=== PATIENT | female | born 1975 | race Caucasian/White ===

== ENCOUNTER 2017-03-08 16:19 | Observation (INO) | payer BC ==
[2017-03-08] MEDS ORDERED: Lactated Ringers 1,000 ML IV SCH (17:00)
[2017-03-08 17:17] LABS: BASOPHIL % 0.2 % (0.0-0.4); Eosinophil % 1.4 % (0.00-5.0); Granulocytes % 65.5 % (36.0-66.0); Lymphocytes % 25.1 % (24.0-44.0); Mean Cell Volume 85.2 fl (78-100); Mean Corpuscular Hemoglobin 26.8 pg (26-32); Mean Platelet Volume 9.7 fl (6-9.5); Monocytes % 7.8 % (0.0-12.0); Platelet Count 622 K/mm3 (150-450); Red Blood Count 4.73 M/mm3 (4.1-5.4); Red Cell Distribution Width 15.7 % (11.5-14.0)
[2017-03-08 17:37] LABS: ALBUMIN 3.2 g/dL (3.4-5.0); ALKALINE PHOSPHATASE 68 U/L (46-116); ANION GAP 10.3 MEQ/L (5-15); BILIRUBIN,TOTAL 0.3 mg/dL (0.2-1.0); BLOOD UREA NITROGEN 10 mg/dL (9-20); CHLORIDE 106 mEq/L (98-107); Carbon Dioxide 29.2 mEq/L (21-32); Glucose 100 MG/DL (70-110); Potassium 3.9 mEq/L (3.5-5.1); SGOT/AST 32 U/L (15-37); SGPT/ALT 32 U/L (12-78); SODIUM 142 mEq/L (136-145); Total Protein 6.2 gm/dL (6.4-8.2)
[2017-03-08] MEDS: Lactated Ringers 1,000 ML IV SCH (18:07)
--- NOTE | 2017-03-08 19:43 | PCM.HP ---
History of Present Illness - Chief Complaint Chief Complaint: dehydration/viral syndrome History of Present Illness: is a 41 year old female. - Review of Systems Constitutional: Fever, Weight Loss (from weight wat[employer], 22 lb since Nov) Ears, Nose, & Throat: Throat Pain Respiratory: Cough, Short Of Breath Cardiac: Chest Pain (burning; resolved) Abdominal/Gastrointestinal: Diarrhea Musculoskeletal: Fall (syncope last night) Neurological: Headache, Other (syncope) Psychological: No Anxiety, No Depression, No Suicidal Ideations All Other Systems: Reviewed and Negative Medications & Allergies Home Medications: Home Medication List Venlafaxine HCl ER 75 mg [Effexor XR 75 MG] 75 mg PO HS 03/08/17 [History Confirmed 03/08/17] Allergies/Adverse Reactions: Allergies Allergy/AdvReac Type Severity Reaction Status Date / Time No Known Drug Allergies Allergy Unverified 03/08/17 11:36 - Past Medical History Past Medical History: Yes Neurological History: No Pertinent History ENT History: No Pertinent History Cardiac History: No Pertinent History Respiratory History: No Pertinent History Endocrine Medical History: No Pertinent History Musculoskelatal History: No Pertinent History GI Medical History: No Pertinent History History: No Pertinent History Pyscho-Social History: Depression Reproductive Disorders: Menstrual Problems - Female History Are you now?: No - Past Surgical History Past Surgical History: Yes Neuro Surgical History: No Pertinent History Cardiac History: No Pertinent History Respiratory Surgery: No Pertinent History GI Surgical History: No Pertinent History Genitourinary Surgical Hx: No Pertinent History Musculskeletal Surgical Hx: Orthopedic Surgery Female Surgical History: Hysterectomy, Section - Social History Smoking Status: Never smoker Exposure to second hand smoke: No Alcohol: None Drug Use: none - Physical Exam Vital Signs: Vital Signs - 24 hr Temp Pulse Resp BP Pulse Ox 03/08/17 16:24 99.2 F 58 L 16 130/79 98 General Appearance: no apparent distress Neurologic Exam: alert, oriented x 3, cooperative Eye Exam: eyes nml inspection Ears, Nose, Throat Exam: TMs normal, pharynx normal, moist mucous membranes Neck Exam: normal inspection, non-tender, No lymphadenopathy Respiratory Exam: lungs clear, diminished breath sounds (more diminished RLL), other, No crackles/rales, No rhonchi, No wheezing Cardiovascular Exam: regular rate/rhythm, No murmur Gastrointestinal/Abdomen Exam: soft, normal bowel sounds, No tenderness, No distention, No guarding, No rebound Back Exam: normal inspection Extremity Exam: No pedal edema, No swelling Skin Exam: normal color, warm, dry Results - Labs Lab/Micro Results: Lab Results-Last 24 Hours 03/08/17 03/08/17 Range/Units 16:37 16:37 WBC 9.0 (4.0-10.5) K/mm3 RBC 4.73 (4.1-5.4) M/mm3 Hgb 12.7 (12.0-16.0) gm/dl Hct 40.3 (35-47) % MCV 85.2 (78-100) fl MCH 26.8 (26-32) pg MCHC 31.5 L (32-36) g/dl RDW 15.7 H (11.5-14.0) % Plt Count 622 H (150-450) K/mm3 MPV 9.7 H (6-9.5) fl Gran % 65.5 (36.0-66.0) % Lymphocytes % 25.1 (24.0-44.0) % Monocytes % 7.8 (0.0-12.0) % Eosinophils % 1.4 (0.00-5.0) % Basophils % 0.2 (0.0-0.4) % Basophils # 0.02 (0-0.4) Sodium 142 (136-145) mEq/L Potassium 3.9 (3.5-5.1) mEq/L Chloride 106 (98-107) mEq/L Carbon Dioxide 29.2 (21-32) mEq/L Anion Gap 10.3 (5-15) MEQ/L BUN 10 (9-20) mg/dL Creatinine 0.87 (0.55-1.30) mg/dl Estimated GFR > 60 ML/MIN Glucose 100 (70-110) MG/DL Calcium 8.3 L (8.5-10.1) mg/dL Total Bilirubin 0.3 (0.2-1.0) mg/dL AST 32 (15-37) U/L ALT 32 (12-78) U/L Alkaline Phosphatase 68 (46-116) U/L Serum Total Protein 6.2 L (6.4-8.2) gm/dL Albumin 3.2 L (3.4-5.0) g/dL - Radiology Impressions Radiology Exams & Impressions: Radiology Procedures Category Date Time Status CHEST 2 VIEWS (PA AND LAT) Urgent Exams 03/08/17 16:39 Taken Assessment/Plan (1) Atypical pneumonia Current Visit: Yes Status: Acute Assessment & Plan: Will treat with zithromax; she already had po zithromax today so will start the IV dose tomorrow. Code(s): J18.9 - PNEUMONIA, UNSPECIFIED ORGANISM (2) Fever Current Visit: Yes Status: Acute Qualifiers: Fever type: unspecified Qualified Code(s): R50.9 - Fever, unspecified Assessment & Plan: Having fever at home; 99.3 so far this evening. will go ahead with blood cultures. INfluenza, strep, mono have been negative per pt - would like these on the chart. Code(s): R50.9 - FEVER, UNSPECIFIED (3) Sinusitis Current Visit: Yes Status: Acute Qualifiers: Sinusitis location: frontal Chronicity: acute Assessment & Plan: treat with IV rocephin. Code(s): J32.9 - CHRONIC SINUSITIS, UNSPECIFIED (4) Syncope Current Visit: Yes Status: Acute Assessment & Plan: Last night. Telemetry. Could have been fluid depletion. check orthostats. Code(s): R55 - SYNCOPE AND COLLAPSE (5) Weakness Current Visit: Yes Status: Acute Assessment & Plan: repeat labs in a.m. Code(s): R53.1 - WEAKNESS (6) Diarrhea Current Visit: Yes Status: Acute Assessment & Plan: c. diff neg per pt report - would like this onthe chart. Code(s): R19.7 - DIARRHEA, UNSPECIFIED
[2017-03-08] MEDS ORDERED: ROCEPHIN 1 Gm-D5w 50 ml Bag** 1 G/50 ML IVPB IV SCH (19:45)
[2017-03-08 21:29] LABS: Collection Type CLEAN CATCH
[2017-03-08 21:30] LABS: COMPLETE URINE MICROSCOPIC? NO
[2017-03-08] MEDS ORDERED: Effexor XR 75 MG PO SCH (22:00)
[2017-03-08] MEDS: TYLENOL EXTRA STRENGTH 500 MG PO PRN (23:26)
[2017-03-09] MEDS: Lactated Ringers 1,000 ML IV SCH (03:03)
[2017-03-09 05:35] LABS: BASOPHIL % 0.4 % (0.0-0.4); Eosinophil % 2.4 % (0.00-5.0); Granulocytes % 50.8 % (36.0-66.0); Lymphocytes % 37.4 % (24.0-44.0); Mean Cell Volume 85.6 fl (78-100); Mean Corpuscular Hemoglobin 26.7 pg (26-32); Mean Platelet Volume 9.9 fl (6-9.5); Platelet Count 544 K/mm3 (150-450); Red Blood Count 4.38 M/mm3 (4.1-5.4); Red Cell Distribution Width 15.9 % (11.5-14.0)
[2017-03-09 05:58] LABS: ALBUMIN 2.7 g/dL (3.4-5.0); ALKALINE PHOSPHATASE 61 U/L (46-116); ANION GAP 10.6 MEQ/L (5-15); BILIRUBIN,TOTAL 0.3 mg/dL (0.2-1.0); BLOOD UREA NITROGEN 7 mg/dL (9-20); CHLORIDE 106 mEq/L (98-107); Carbon Dioxide 29.9 mEq/L (21-32); Glucose 88 MG/DL (70-110); Potassium 4.3 mEq/L (3.5-5.1); SGOT/AST 26 U/L (15-37); SGPT/ALT 28 U/L (12-78); SODIUM 142 mEq/L (136-145); Total Protein 5.5 gm/dL (6.4-8.2)
[2017-03-09] MEDS: TYLENOL EXTRA STRENGTH 500 MG PO PRN (08:07)
--- NOTE | 2017-03-09 08:32 | XRAY ---
Indication: Cough and intermittent fever for 2 weeks. Comparison: March 07, 2017. PA/lateral chest again demonstrates normal heart, lungs, and bony thorax. Comment: Preliminary interpretation was made by [facility]. No discrepancy.
[2017-03-09] MEDS ORDERED: Zithromax 500 MG/ 250 ML NaCl Premix 250 ML IV SCH (10:00)
[2017-03-09] MEDS ORDERED: TORAdol 30 mg Injection IV ONE (10:30)
[2017-03-09 11:42] VITALS: BP 122/77; PULSE 70; O2SAT 97
[2017-03-09] MEDS ORDERED: Lomotil PO PRN (12:47)
--- NOTE | 2017-03-09 13:15 | XRAY ---
Indication: Fever, nausea, and vomiting. Comparison: March 07 and March 08, 2017. PA/lateral chest continues to demonstrate normal heart, lungs, and bony thorax.
--- NOTE | 2017-03-09 13:24 | PCM.DS ---
Discharge Summary Date of Admission: 03/08/17 16:19 Admitting Physician: TURNER MENDEZ Primary Care Provider: FABRIZIO PRATT Allergies Allergies No Known Drug Allergies Allergy (Unverified 03/08/17 11:36) Hospital Summary - Hospital Course Hospital Course: Pt has been ill for almost 2 weeks, she went to and was negative for influenza and strep. Saw [employer] TE[employer] Meg Pratt here and was tested for mono, which was found to be positive this morning (IGg and IgM). She had a syncopal episode yesterday and was admitted to outpatient infusion for IV fluids; after the fluids felt terrible and was admitted for further observation. She is still feeling poorly but notes she had an episode of mono as a teenager and felt very similar. Having diarrhea, but c. diff was negative. OK to d/c home, will start her on steroids. Advised off work until f/u early next week, although she may be off for several weeks. Her platelets are elevated and this will need to be followed up outpatient. - Vitals & Intake/Output Vital Signs: Vital Signs Temperature 98.9 F 03/09/17 11:41 Pulse Rate 70 03/09/17 11:41 Respiratory Rate 12 03/09/17 11:41 Blood Pressure 122/77 03/09/17 11:41 O2 Sat by Pulse Oximetry 97 03/09/17 11:41 Intake & Output: Intake & Output 03/07/17 03/08/17 03/09/17 03/10/17 11:59 11:59 11:59 11:59 Intake Total 2750 Output Total 2700 Balance 50 Weight 87.997 kg - Lab Result Diagrams: 03/09/17 05:15 03/09/17 05:15 Lab Results-Last 24 Hrs: Lab Results-Last 24 Hours 03/08/17 03/08/17 03/08/17 Range/Units 16:37 16:37 21:00 WBC 9.0 (4.0-10.5) K/mm3 RBC 4.73 (4.1-5.4) M/mm3 Hgb 12.7 (12.0-16.0) gm/dl Hct 40.3 (35-47) % MCV 85.2 (78-100) fl MCH 26.8 (26-32) pg MCHC 31.5 L (32-36) g/dl RDW 15.7 H (11.5-14.0) % Plt Count 622 H (150-450) K/mm3 MPV 9.7 H (6-9.5) fl Gran % 65.5 (36.0-66.0) % Lymphocytes % 25.1 (24.0-44.0) % Monocytes % 7.8 (0.0-12.0) % Eosinophils % 1.4 (0.00-5.0) % Basophils % 0.2 (0.0-0.4) % Basophils # 0.02 (0-0.4) Sodium 142 (136-145) mEq/L Potassium 3.9 (3.5-5.1) mEq/L Chloride 106 (98-107) mEq/L Carbon Dioxide 29.2 (21-32) mEq/L Anion Gap 10.3 (5-15) MEQ/L BUN 10 (9-20) mg/dL Creatinine 0.87 (0.55-1.30) mg/dl Estimated GFR > 60 ML/MIN Glucose 100 (70-110) MG/DL Calcium 8.3 L (8.5-10.1) mg/dL Total Bilirubin 0.3 (0.2-1.0) mg/dL AST 32 (15-37) U/L ALT 32 (12-78) U/L Alkaline Phosphatase 68 (46-116) U/L Serum Total Protein 6.2 L (6.4-8.2) gm/dL Albumin 3.2 L (3.4-5.0) g/dL Ur Collection Type CLEAN CATCH Urine Color YELLOW (YELLOW) Urine Appearance CLEAR (CLEAR) Urine pH 6.0 (5-6) Ur Specific [place] 1.015 (1.005-1.025) Urine Protein NEGATIVE (Negative) Urine Glucose (UA) 100 (NEGATIVE) mg/dL Urine Ketones NEGATIVE (NEGATIVE) Urine Nitrite NEGATIVE (NEGATIVE) Urine Bilirubin NEGATIVE (NEGATIVE) Urine Urobilinogen 0.2 (0-1) mg/dL Urine WBC (Auto) NEGATIVE (NEGATIVE) Urine RBC (Auto) NEGATIVE (0-5) Enrique/ul Specimen Received 03/08/17212403/09/17 03/09/17 Range/Units 05:15 05:15 WBC 8.0 (4.0-10.5) K/mm3 RBC 4.38 (4.1-5.4) M/mm3 Hgb 11.7 L (12.0-16.0) gm/dl Hct 37.5 (35-47) % MCV 85.6 (78-100) fl MCH 26.7 (26-32) pg MCHC 31.2 L (32-36) g/dl RDW 15.9 H (11.5-14.0) % Plt Count 544 H (150-450) K/mm3 MPV 9.9 H (6-9.5) fl Gran % 50.8 (36.0-66.0) % Lymphocytes % 37.4 (24.0-44.0) % Monocytes % 9.0 (0.0-12.0) % Eosinophils % 2.4 (0.00-5.0) % Basophils % 0.4 (0.0-0.4) % Basophils # 0.03 (0-0.4) Sodium 142 (136-145) mEq/L Potassium 4.3 (3.5-5.1) mEq/L Chloride 106 (98-107) mEq/L Carbon Dioxide 29.9 (21-32) mEq/L Anion Gap 10.6 (5-15) MEQ/L BUN 7 L (9-20) mg/dL Creatinine 0.94 (0.55-1.30) mg/dl Estimated GFR > 60 ML/MIN Glucose 88 (70-110) MG/DL Calcium 8.1 L (8.5-10.1) mg/dL Total Bilirubin 0.3 (0.2-1.0) mg/dL AST 26 (15-37) U/L ALT 28 (12-78) U/L Alkaline Phosphatase 61 (46-116) U/L Serum Total Protein 5.5 L (6.4-8.2) gm/dL Albumin 2.7 L (3.4-5.0) g/dL Ur Collection Type Urine Color (YELLOW) Urine Appearance (CLEAR) Urine pH (5-6) Ur Specific [place] (1.005-1.025) Urine Protein (Negative) Urine Glucose (UA) (NEGATIVE) mg/dL Urine Ketones (NEGATIVE) Urine Nitrite (NEGATIVE) Urine Bilirubin (NEGATIVE) Urine Urobilinogen (0-1) mg/dL Urine WBC (Auto) (NEGATIVE) Urine RBC (Auto) (0-5) Enrique/ul Specimen Received - Radiology Exams Ordered Rad Exams-Entire Visit: Radiology Procedures Category Date Time Status CHEST 2 VIEWS (PA AND LAT) Routine Exams 03/09/17 12:37 Completed CHEST 2 VIEWS (PA AND LAT) Urgent Exams 03/08/17 16:39 Completed Discharge Exam General Appearance: no apparent distress Neurologic Exam: alert, oriented x 3, cooperative Skin Exam: normal color, warm, dry Respiratory Exam: normal breath sounds, lungs clear, No crackles/rales, No rhonchi, No wheezing Cardiovascular Exam: regular rate/rhythm, normal heart sounds, No murmur Gastrointestinal/Abdomen Exam: soft, normal bowel sounds, No tenderness, No distention, No hepatomegaly, No splenomegaly Extremity Exam: normal inspection, No pedal edema, No swelling Back Exam: normal inspection Final Diagnosis/Problem List - Final Discharge Diagnosis/Problem (1) Mononucleosis Current Visit: Yes Status: Acute Assessment & Plan: Will d/c the antibiotics, start her on a po steroid and send her home. f/u with me Tue or next week. Off work until then, likely longer but will re- eval at that time. (2) Fever Current Visit: Yes Status: Resolved (3) Syncope Current Visit: Yes Status: Acute Assessment & Plan: advised sit if feeling symptomatic. likely due to the mono. telemetry wnl. (4) Weakness Current Visit: Yes Status: Acute (5) Diarrhea Current Visit: Yes Status: Acute Assessment & Plan: ok lomotil po prn. c. diff neg. (6) Thrombocytosis Current Visit: Yes Status: Acute Assessment & Plan: recheck outpatient just before f/u visit. - Discharge Disposition: Home, Self-Care Condition: Stable Prescriptions: New Diphenoxylate HCl/Atropine [Lomotil] 2 tablet PO QID PRN PRN #30 tablet PRN Reason: Diarrhea Prednisone 20 mg PO DAILY #17 tablet Continue Venlafaxine HCl ER 75 mg [Effexor XR 75 MG] 75 mg PO HS
[2017-03-09] MEDS ORDERED: ROCEPHIN 1 Gm-D5w 50 ml Bag** 1 G/50 ML IVPB IV SCH (22:00)
== END 2017-03-09 16:05 | disposition home or self-care (01) ==
LOC: MED SURG 16:19
PROVIDERS: ADMIT Family Medicine; ATTEND Family Medicine
DX: B27.90 Infectious mononucleosis, unspecified without complication (principal); R55 Syncope and collapse; R53.1 Weakness; R19.7 Diarrhea, unspecified; D47.3 Essential (hemorrhagic) thrombocythemia; J18.9 Pneumonia, unspecified organism; J01.10 Acute frontal sinusitis, unspecified
CPT/HCPCS: 36415; 71020; 80053; 81002; 85025; 93268; G0378; J0456; J0696; J1885; A9270-GY